=== PATIENT | male | born 1965 | race Caucasian/White ===

== ENCOUNTER 2020-08-26 17:02 | Emergency (ER) | payer MEDICAID ==
[~2020-08-26] VITALS: Ht 175.3 cm; Wt 72.7 kg
[2020-08-26 17:58] VITALS: BP 122/76
== END 2020-08-26 18:15 | disposition home or self-care (01) ==
LOC: ER 17:03
DX: R43.8 Other disturbances of smell and taste (principal); Z20.828 Contact with and (suspected) exposure to other viral communicable diseases; F17.200 Nicotine dependence, unspecified, uncomplicated
CPT/HCPCS: 36415; 99282

== ENCOUNTER 2021-02-15 05:20 | Day surgery (SDC) | payer OTHER ==
[2021-02-08 14:39] LABS: BASOPHILS # (AUTO) 0.1 X10'3 (0-0.2); BASOPHILS % (AUTO) 0.8 % (0-1); EOSINOPHILS # (AUTO) 0.5 X10'3 (0-0.9); LYMPHOCYTES # (AUTO) 2.2 X10'3 (1.1-4.8); LYMPHOCYTES % (AUTO) 26.8 % (21-51); MEAN CORPUSCULAR HEMOGLOBIN 32.4 PG (27.0-31.0); MEAN CORPUSCULAR HGB CONC 34.3 g/dL (33.0-36.5); MEAN CORPUSCULAR VOLUME 94.3 FL (78-98); MEAN PLATELET VOLUME 7.9 FL (7.4-10.4); MONOCYTES # (AUTO) 0.8 X10'3 (0-0.9); MONOCYTES % (AUTO) 9.4 % (2-12); NEUTROPHILS # (AUTO) 4.8 X10'3 (1.8-7.7); PRE OP HEMATOCRIT 48.6 % (42.0-52.0); PRE OP HEMOGLOBIN 16.7 g/dL (14.0-17.9); PRE OP PLATELET COUNT 318 X10'3 (140-440); RED BLOOD COUNT 5.16 X10'6 (4.70-6.10); RED CELL DISTRIBUTION WIDTH 13.4 % (11.5-14.5)
[2021-02-08 14:51] LABS: ALBUMIN 4.1 G/DL (3.4-5.0); ALBUMIN/GLOBULIN RATIO 1.2 (1.1-1.5); ALKALINE PHOSPHATASE 53 IU/L (46-116); BLOOD UREA NITROGEN 15 MG/DL (7-18); CALCIUM 9.3 MG/DL (8.5-10.1); CHLORIDE 103 MMOL/L (99-107); CREATININE 1.36 MG/DL (0.60-1.10); PRE OP ALT 27 U/L (30-65); PRE OP ANION GAP 4 (8-16); PRE OP AST 22 U/L (10-37); PRE OP BILIRUB, TOTAL 0.5 MG/DL (0.0-1.0); PRE OP GLUCOSE 96 MG/DL (70-104); PRE OP POTASSIUM 4.5 MMOL/L (3.4-5.1); PRE OP SODIUM 139 MMOL/L (135-145); TOTAL CARBON DIOXIDE 32.2 MMOL/L (24-32); TOTAL PROTEIN 7.4 G/DL (6.4-8.2); eGFR 54 ML/MIN
[~2021-02-15] VITALS: Ht 175.3 cm; Wt 72.7 kg
[2021-02-15] VITALS (7 sets, daily range): BP systolic 119–144; BP diastolic 76–89
[~2021-02-15 05:20] MED LIST: SILD100T PO; ringers solution, lacted 1,000 ML IV SCH
[2021-02-15] MEDS ORDERED: cefazolin/dext.iso 2gm/100ml IV ONE (05:30)
[2021-02-15] MEDS ORDERED: famotidine 20mg tablet PO ONE (05:30)
[2021-02-15] MEDS ORDERED: fentaNYL/PF 50MCG/1 ML 2ML syringe ONE (07:13)
[2021-02-15] MEDS ORDERED: midazolam 1 mg/ML 2ml injection ONE ×2 (07:14→07:16)
[2021-02-15] MEDS ORDERED: neostigmine methylsulfate 1 MG/ML 10ml vial ONE (07:16)
[2021-02-15] MEDS ORDERED: sevoflurane 250ml liquid IH ONE (07:16)
[2021-02-15] MEDS ORDERED: ondansetron/PF 4mg/2ml inj IV PRN (08:00)
[2021-02-15] MEDS ORDERED: ROPIVAcaine 0.2% (10 MG/5 ML) BOLUS INJECTION INTERSCALE PRN (08:00)
[2021-02-15] MEDS ORDERED: ringers solution, lacted 1,000 ML IV SCH (08:00)
[2021-02-15] MEDS ORDERED: ROPIVAcaine 0.2%/PF PUMP/bolus 545 ML INTERSCALE SCH (08:00)
[2021-02-15] MEDS ORDERED: proCHLORperazine 10 MG/2 ml inj IV PRN (08:00)
[2021-02-15] MEDS ORDERED: morphine 2 MG/ML inj. syringe IV PRN (08:00)
[2021-02-15] MEDS ORDERED: morphine 4 MG/ML inj SYRINge IV PRN (08:00)
[2021-02-15] MEDS ORDERED: meperidine/PF 25mg/ml syringe IV PRN ×3 (08:00)
[2021-02-15] MEDS ORDERED: LIDOcaine 2% (20mg/ml) 5ml vial ONE (08:28)
[2021-02-15] MEDS ORDERED: ondansetron/PF 4mg/2ml inj ONE (08:28)
[2021-02-15] MEDS ORDERED: acetaminophen 1,000mg/100ml IV 100 ML IV ONE (08:28)
[2021-02-15] MEDS ORDERED: dexamethasone sod phosphate 4mg/ml inj. ONE (08:28)
[2021-02-15] MEDS ORDERED: propofol inj 20 ML IV ONE (08:28)
[2021-02-15] MEDS ORDERED: ROPIVAcaine 0.5% (5mg/ml) 30ml vial ONE (08:30)
[2021-02-15] MEDS ORDERED: glycopyrrolate 0.2mg/ml inj ONE (08:32)
--- NOTE | 2021-02-15 08:40 | NUR ---
Received from OR via , accompanied by Anesthesiologist DR KAMARA and report given by Anesthesiolgist. AWAKENS TO VOICE. VITALS STABLE. DRESSING DI. ROBERT PAIN. FINGERS WARM AND PINK. RUE IN A SLING.
[2021-02-15] MEDS ORDERED: HYDROcodone/acetaminophen 10/325mg tab PO PRN (08:50)
--- NOTE | 2021-02-15 09:50 | NUR ---
AWAKE AND ORIENTED. VITALS STABLE. DRESSING DI. ROBERT PAIN. ONQ INSTRUCTIONS GIVEN WITH VERBAL UNDERSTANDING. HOME WITH A FRIEND AT THIS TIME.
== END 2021-02-15 09:50 | disposition home or self-care (01) ==
LOC: PAS 05:20
PROVIDERS: ATTEND Orthopaedic Surgery
DX: M75.41 Impingement syndrome of right shoulder (principal); M19.011 Primary osteoarthritis, right shoulder; M77.8 Other enthesopathies, not elsewhere classified; M75.51 Bursitis of right shoulder; F17.210 Nicotine dependence, cigarettes, uncomplicated; F10.21 Alcohol dependence, in remission; F32.9 Major depressive disorder, single episode, unspecified; F41.9 Anxiety disorder, unspecified; G89.18 Other acute postprocedural pain; Z98.890 Other specified postprocedural states; Z79.899 Other long term (current) drug therapy
CPT/HCPCS: 29823; 36415; 64416; 76937; 80053; 82948; 85025; 93005; J0131; J1100; J2001; J2250; J2405; J2704; J2710; J2795; J3010; J7120; A4565; A4618; A6449; A7000; J3490

== ENCOUNTER 2021-02-17 09:20 | Emergency (ER) | payer OTHER ==
[~2021-02-17] VITALS: Ht 175.3 cm; Wt 74.1 kg
[~2021-02-17 09:20] MED LIST changes: -ringers solution, lacted 1,000 ML IV SCH
--- NOTE | 2021-02-17 11:32 | NUR ---
CRISPIN PALMA IN ROOM AND REMOVED ROPIVICAINE PAIN PUIMP, PATIETN HAD SHOULDER RIGHT SX ON THURSDAY BY DR MCMILLAN. DENIES PAIN
--- NOTE | 2021-02-17 11:36 | NUR ---
LARGE DRESSING INTACT TO RIGHT SHOULDER, PATIETN WEARING SLING/SHOULDER IMMOBLIZER , DENIES PAIN, NUMBNES OR TINGLING. ACCOUNT SERVICES ASSOCIATE WNL TO BOTH HANDS, MOVEMENT WNL BILATERALLT HANDS, PALPABLE BILATERAL RADIAL PULSES
--- NOTE | 2021-02-17 11:40 | NUR ---
NUNO VERBALIZED THAT HE WILL CONTINUE TO FOLLOW DR MCMILLAN' POST OP DISCHARGE INSTRUCTIONS. PATIENT STSTAED THAT HE WILL FOLLOW UP WITH DR MCMILLAN IN 10 DAYS FOR HIS POST OP APPOINTMENT. NUNO AMBULATED OUT OF ER WN WEARING HIS DONJOY ULTRASLING ON HIS RIGHT ARM
--- NOTE | 2021-02-17 12:00 | NUR ---
Victorina [email or web address] in [facility] - 02/17/21 at 1336 by GIA PATIENT ENCOURAGED TO USE THE [facility]. HE LAST SAW THE [facility]OPE [facility] 2 WEEKS AGO.
[2021-02-17 13:37] VITALS: BP 135/71
== END 2021-02-17 11:40 | disposition home or self-care (01) ==
LOC: ER 09:21
DX: G89.18 Other acute postprocedural pain (principal); Z46.89 Encounter for fitting and adjustment of other specified devices; Z79.899 Other long term (current) drug therapy
CPT/HCPCS: 99281

== ENCOUNTER 2022-04-25 15:38 | Emergency (ER) | payer MEDICAID, OTHER ==
[~2022-04-25] VITALS: Ht 175.3 cm; Wt 72.0 kg
[2022-04-25 15:44] VITALS: BP 164/93
[2022-04-25 16:06] LABS: BASOPHILS # (AUTO) 0.1 X10'3 (0-0.2); BASOPHILS % (AUTO) 0.6 % (0-1); EOSINOPHILS # (AUTO) 0.2 X10'3 (0-0.9); EOSINOPHILS % (AUTO) 2.7 % (0-6); HEMATOCRIT 50.3 % (42.0-52.0); HEMOGLOBIN 17.6 g/dl (14.0-17.9); LYMPHOCYTES # (AUTO) 2.5 X10'3 (1.1-4.8); LYMPHOCYTES % (AUTO) 28.6 % (21-51); MEAN CORPUSCULAR HEMOGLOBIN 31.8 PG (27.0-31.0); MEAN CORPUSCULAR HGB CONC 35.1 g/dL (33.0-36.5); MEAN CORPUSCULAR VOLUME 90.7 FL (78-98); MEAN PLATELET VOLUME 7.6 FL (7.4-10.4); MONOCYTES # (AUTO) 0.9 X10'3 (0-0.9); MONOCYTES % (AUTO) 9.7 % (2-12); NEUTROPHILS # (AUTO) 5.1 X10'3 (1.8-7.7); NEUTROPHILS % (AUTO) 58.4 % (42-75); PLATELET COUNT 313 X10'3 (140-440); RED BLOOD COUNT 5.55 X10'6 (4.70-6.10); RED CELL DISTRIBUTION WIDTH 13.2 % (11.5-14.5); WHITE BLOOD COUNT 8.8 X10'3 (4.5-11.0)
[2022-04-25 16:24] LABS: ALANINE AMINOTRANSFERASE 41 U/L (12-78); ALBUMIN 4.7 G/DL (3.4-5.0); ALBUMIN/GLOBULIN RATIO 1.4 (1.1-1.5); ALKALINE PHOSPHATASE 70 IU/L (46-116); ANION GAP 11 (8-16); ASPARTATE AMINO TRANSFERASE 29 U/L (10-37); BILIRUBIN,TOTAL 0.5 MG/DL (0.1-1.0); BLOOD UREA NITROGEN 15 MG/DL (7-18); BUN/CREATININE RATIO 10.7 (5.4-32.0); CALCIUM 9.7 MG/DL (8.5-10.1); CHLORIDE 104 MMOL/L (99-107); GLUCOSE 104 MG/DL (70-104); POTASSIUM 4.2 MMOL/L (3.5-5.1); SODIUM 144 MMOL/L (135-145); TOTAL CARBON DIOXIDE 29.2 MMOL/L (24-32); TOTAL PROTEIN 8.1 G/DL (6.4-8.2); eGFR 52 ML/MIN
[2022-04-25] MEDS ORDERED: LORA2TAB96 PO (18:19)
== END 2022-04-25 18:35 | disposition home or self-care (01) ==
LOC: ER 15:38
DX: R07.9 Chest pain, unspecified (principal); F41.1 Generalized anxiety disorder; Z79.899 Other long term (current) drug therapy
CPT/HCPCS: 36415; 71045; 80053; 83880; 84484; 85025; 93005; 99285